=== PATIENT | male | born 1960 | race African-American/Black ===

== ENCOUNTER 2017-01-22 00:01 | Emergency (ER) | payer OTHER ==
[~2017-01-22] VITALS: Ht 182.9 cm; Wt 84.0 kg
[2017-01-22] MEDS ORDERED: MORPHINE SULFATE 4 MG/ML CPJ (NOT FOR IM USE) IV ONE (00:45)
[2017-01-22] MEDS ORDERED: BACITRACIN/POLYMYXIN B SULFATE OINT 15GM TOP ONE (00:45)
[2017-01-22 01:41] VITALS: BP 153/99
== END 2017-01-22 02:52 | disposition home or self-care (01) ==
LOC: ER 00:13
DX: T24.201A Burn of second degree of unspecified site of right lower limb, except ankle and foot, initial encounter (principal); J45.909 Unspecified asthma, uncomplicated; F12.90 Cannabis use, unspecified, uncomplicated
CPT/HCPCS: 96374; 99284; J2270; Z7610